=== PATIENT | female | born 1995 | race Caucasian/White ===

== ENCOUNTER 2016-12-07 00:05 | Inpatient (IN) | payer OTHER ==
[~2016-12-07] VITALS: Ht 167.6 cm; Wt 49.9 kg
[~2016-12-07 00:05] MED LIST: BUPR1FIL SL
--- NOTE | 2016-12-07 00:06 | NUR ---
PREADMISSION NOTE : Met 21 year old, thinly-built, caucasion female in [facility] Int[facility] office for V/S and pre-admit assess. Patient accompanied by father and brother. Patient denies any food or drug allergies and she states that she has never had any seizures. Patient denies any pre-existing medical or psychiatric conditions, though she states that she does have "anxiety alot" and is a "hypochondriac". Vital signs are: 98.2-90-18 122/71, O2 Sat 100%. Patient did not bring any medications with her from home. Patient states that this admission will be her very first one for drug detox. Explanation given to patient regarding, [facility] floor admission process and floor protocol, including Q4 hr V/S. Patient then nodded her head and said, " okay".
--- NOTE | 2016-12-07 01:02 | NUR ---
0102 ADMISSION NOTE: Patient admitted to [facility] ambulatory to room # 318, after being given tour of floor by DETENTION WORKER. Gait is steady. Patient's color is pink and her skin is warm, dry and intact, though her overall appearance is somewhat disheveled. Patient noted to have some redness ans slight swelling on forearms, and she states that they have been "feeling a little sore for the past few days". Patient states, " I missed some shots on them". Patient is oriented to person, place, day, date and her personal situation. Easily reoriented to time. Patient states that she is coming from [facility] and this is her first detox admission anywhere. Patient is admitted for 1) Heroin use, daily 1/2 to1 gram IV (formerly smoked). Last heroin use was on 12/06/16, 1/3 of 1 gram IV. Patient has been using heroin at this rate for past 2 months, though she has been using heroin since age 14. 2) Methamphetamine use, daily 1/10 of 1 gram IV. Last Meth use was on 12/01/16, 1/10 of 1 gram IV. She has been using Meth at this rate for the past 2 months, though she has been using Meth since age 18. Patient has no PCP at this time. Patient's lung sounds are clear bilaterally per auscultation. Patient is 5 feet and 6 inches and she weighs 110 lbs. Patient moves all her extremities fully WNL, though body movements are a bit slow and measured. Vital signs are: 98.2-83-18 105/68, O2 Sat 99%, COWS 8. Patient is cooperative and verbally appropriate, though she is anxious and states that she just does not want to "feel sick" while she is here at [facility]. Patient took ice cream snack and drank fluids with no gastric issue. Patient denies any pain at this time. Patient oriented to her room and immediate surroundings. Please see preadmission note for further patient information. Bed is locked and in lowest position, bed rails are up X 2 and call light within patient's easy reach.
[2016-12-07] MEDS ORDERED: MAGNESIUM HYDROXIDE 30 ML LIQUID UDC PO PRN (02:30)
[2016-12-07] MEDS ORDERED: ONDANSETRON 4 MG/2 ML VIAL IM PRN (02:30)
[2016-12-07] MEDS ORDERED: LOPERAMIDE HCL 2 MG CAPSULE PO PRN ×2 (02:30)
[2016-12-07] MEDS ORDERED: diphenhydrAMINE 50 MG CAPSULE PO PRN (02:30)
[2016-12-07] MEDS ORDERED: MIRALAX 17 GM POWD.PACK PO PRN (02:30)
[2016-12-07] MEDS ORDERED: ACETAMINOPHEN 325 MG TABLET PO PRN (02:30)
[2016-12-07] MEDS ORDERED: DICYCLOMINE HCL 20 MG TABLET PO PRN (02:30)
[2016-12-07] MEDS ORDERED: MAG HYDROX/AL HYDROX/SIMETH 30 ML LIQUID UDC PO PRN (02:30)
[2016-12-07] MEDS ORDERED: ONDANSETRON ODT 4 MG TAB.RAPDIS SL PRN (02:30)
[2016-12-07 02:34] LABS: *URINE HCG, QUAL NEGATIVE (NEGATIVE)
[2016-12-07 02:42] LABS: *AMPHETAMINE, URINE POSITIVE (NEGATIVE); *BARBITURATE, URINE NEGATIVE (NEGATIVE); *CANNABINOID, URINE NEGATIVE (NEGATIVE); *COCCAINE, URINE NEGATIVE (NEGATIVE); *OPIATE, URINE POSITIVE (NEGATIVE); *PHENCYCLIDINE SCREEN,URINE NEGATIVE (NEGATIVE)
[2016-12-07 04:00] VITALS: BP 101/66
[2016-12-07] MEDS: METHOCARBAMOL 750 MG TABLET PO PRN ×2 (04:02→20:41)
[2016-12-07] MEDS: HYDROXYZINE PAMOATE 25 MG CAPSULE PO PRN ×2 (04:02→20:41)
[2016-12-07] MEDS: CLONIDINE HCL 0.1 MG TABLET PO PRN ×2 (04:02→21:32)
--- NOTE | 2016-12-07 04:02 | NUR ---
PRN MEDICATIONS: Prn Robaxin 750 mg p.o. given, Prn Catapres 0.1 mg p.o and Prn Vistaril 50 mg p.o. given per c/o body aches and pains, [id number], and anxiety respectively.
[2016-12-07] MEDS ORDERED: HYDROXYZINE PAMOATE 25 MG CAPSULE ONE (04:09)
[2016-12-07] MEDS ORDERED: METHOCARBAMOL 750 MG TABLET ONE (04:10)
[2016-12-07] MEDS: BUPRENORPHINE HCL 2 MG TAB.SUBL SL PRN ×2 (05:00→09:52)
--- NOTE | 2016-12-07 05:00 | NUR ---
PRN SUBUTEX 4 mg SL given for CIWA 12, with c/o chills, body aches and pains, and patient starting to cry now.
--- NOTE | 2016-12-07 05:00 | NUR ---
Prn Subutex 4 mg SL given for c/o shakes, body aches and pains and "really feeling bad". Patient beginning to cry. CIWA 12.
[2016-12-07] MEDS ORDERED: BUPRENORPHINE HCL 2 MG TAB.SUBL SL ONE (05:10)
--- NOTE | 2016-12-07 06:00 | NUR ---
REASSESSMENT PRN MEDICATION: Patient is sleeping comfortably with eyes closed and respirations even, unlabored at 12. Patient NOT awakened for CIWA assessment.
--- NOTE | 2016-12-07 06:30 | NUR ---
0630 Patient slept a total of 4 hours and she had 500 mg p.o. total intake. Voids 1, stools none.
[2016-12-07 08:00] VITALS: BP 103/64
--- NOTE | 2016-12-07 08:00 | NUR ---
START OF SHIFT NOTE Received report from night nurse, 21 year old female admitted for Heroin/Meth dependence. Full code, NKA, Regular diet. Pt reported PMH of kidney infection, denies any history of seizures. Pt reported first time in treatment. Pt received PRN Subutex, Vistaril, Benadryl, Robaxin,Clonidine, slept for 4 hours. Upon assessment, Pt is alert awake oriented x4. Breathing normal no SOB noted. Respirations even unlabored, denies SOB/chest pain, denies n/v/d, bowel sounds active x4, abdomen soft. Safety measures in place, call light within reach, side rails up x2, bed locked and in low position. Will continue to monitor.
[2016-12-07] MEDS: MULTIVITAMINS,THERAPEUTIC TABLET PO SCH (09:26)
--- NOTE | 2016-12-07 09:52 | NUR ---
PRN SUBUTEX Pt c/o of body aches, chills, runny nose, nausea. COWS score noted 13. PRN Subutex 4mg SL as ordered for COWS score. Will cont to monitor and reassess.
[2016-12-07 10:08] LABS: BASOPHILS # (AUTO) 0.1 K/uL (0.0-8.0); BASOPHILS % (AUTO) 0.8 % (0.0-2.0); EOSINOPHILS # (AUTO) 0.1 K/uL (0.0-0.7); EOSINOPHILS % (AUTO) 1.5 % (0.0-7.0); HEMATOCRIT 37.3 % (37-47); HEMOGLOBIN 12.4 G/DL (12.0-16.0); LYMPHOCYTES # (AUTO) 1.8 K/UL (0.8-4.8); LYMPHOCYTES % (AUTO) 29.3 % (20.5-51.5); MEAN CORPUSCULAR HEMOGLOBIN 26.4 UUG (27.0-31.0); MEAN CORPUSCULAR HGB CONC 33 g/dL (32.0-37.0); MEAN CORPUSCULAR VOLUME 79.1 FL (81.0-99.0); MONOCYTES # (AUTO) 0.6 K/UL (0.1-1.30); MONOCYTES % (AUTO) 10.2 % (0.0-11.0); NEUTROPHILS # (AUTO) 3.7 K/UL (1.8-8.9); NEUTROPHILS % (AUTO) 58.2 % (38.5-71.5); PLATELET COUNT (AUTO) 272 K/UL (150-450); RED BLOOD CELL COUNT(AUTO) 4.72 MIL/UL (4.2-5.4); WHITE BLOOD COUNT (AUTO) 6.3 K/UL (4.0-11.2)
[2016-12-07 10:16] LABS: ETHANOL < 3 MG/DL (0-0)
[2016-12-07 10:19] LABS: ALANINE AMINOTRANSFERASE 16 U/L (14-59); ALKALINE PHOSPHATASE 61 U/L (50-136); AMYLASE 47 U/L (25-115); ASPARTATE AMINOTRANSFERASE 17 U/L (15-37); BILIRUBIN,TOTAL 0.3 mg/dL (0.2-1.0); CARBON DIOXIDE 27 mmol/L (21-32); CHLORIDE 107 mmol/L (98-107); CREATININE 0.7 mg/dL (0.6-1.3); GLUCOSE 113 mg/dL (74-106); LIPASE 202 U/L (73-393); POTASSIUM 4.5 mmol/L (3.5-5.1); TOTAL PROTEIN, SERUM 6.5 g/dL (6.4-8.2); UREA NITROGEN, BLOOD 9 mg/dL (7-18)
--- NOTE | 2016-12-07 10:20 | NUR ---
SUBUTEX REASSESSMENT Upon reassessment pt reported medication effective, feeling a lot better. COWS score noted-8.
[2016-12-07 10:27] LABS: THYROID STIMULATING HORMONE 0.633 mIU/mL (0.358-3.740)
[2016-12-07 12:00] VITALS: BP 108/66
[2016-12-07] MEDS: BUPRENORPHINE HCL 2 MG TAB.SUBL SL SCH ×2 (14:07→20:41)
[2016-12-07 16:00] VITALS: BP 106/73
--- NOTE | 2016-12-07 19:05 | NUR ---
END OF SHIFT NOTE Pt started on Subutex taper tolerated well. Pt presented with anxiousness, agitated, chills, body aches, pain during shift. Pt given PRN Subutex 4 mg as ordered noted to be effective. Last COWS score noted 6. Pt rested most of shift and isolated self from peers. She did not attend groups or activities. Encouraged pt to attend groups and activities to learn new coping skills. Vital signs remained stable. Pt remained compliant with care and medications. During shift pt was seen by MD Perkins, and Psychiatrist. Safety measures in place, Call light within reach. Pt endorsed to night nurse in stable condition.
--- NOTE | 2016-12-07 19:55 | NUR ---
START OF SHIFT Received report from day shift nurse. Pt is lying in bed resting. She is a 21 yo female admitted to [facility] today for heroin and methamphetamine dependence. Pt is A&O x4 and ambulatory. NKA, full code status, and on a regular diet. She has a PMH of kidney infections. On admission she reported using heroin 0.5-1 gram per day and methamphetamine 1/10 of a gram per day. She started a 5 day Subutex taper today. She presents with moist skin, chills, body aches, and restless legs. Taper due tonight. Fall precautions in place. Bed is down with call light in reach.
[2016-12-07 20:00] VITALS: BP 112/71
[2016-12-07] MEDS: GABAPENTIN 300 MG CAPSULE PO SCH (20:41)
--- NOTE | 2016-12-07 20:42 | NUR ---
PRN Vistaril and Robaxin Pt c/o feeling "really anxious" with generalized body aches and restlessness. PRN Vistaril and Robaxin administered.
[2016-12-07 21:30] VITALS: BP 126/80
--- NOTE | 2016-12-07 21:30 | NUR ---
PRN Vistaril and Robaxin reassessment PRN Robaxin effective. Pt reports body aches are reduced. PRN Vistaril not effective. Pt reports that she does not feel any more relaxed and continues to have anxiety.
[2016-12-07] MEDS: IBUPROFEN 400 MG TABLET PO PRN (21:32)
--- NOTE | 2016-12-07 21:33 | NUR ---
PRN Clonidine, Ibuprofen, and Zofran Pt reports anxiety, tooth pain, and nausea. B/P 126/80 and HR 114. COWS score 12. PRN Clonidine, Ibuprofen, and Zofran administered.
--- NOTE | 2016-12-07 22:33 | NUR ---
PRN Clonidine, Ibuprofen, and Zofran reassessment PRN Clonidine, Ibuprofen, and Zofran effective. Pt is lying in bed resting with eyes closed. Respirations even and unlabored. Safety measures in place.
[2016-12-08] VITALS: BP 93/56
[2016-12-08 04:00] VITALS: BP 86/49
--- NOTE | 2016-12-08 04:00 | NUR ---
0400 COWS deferred COWS ordered Q4HWA. Pt is lying in bed resting with eyes closed. Vital signs obtained.
--- NOTE | 2016-12-08 07:15 | NUR ---
END OF SHIFT Report provided to day shift nurse. Pt is lying in bed resting. She is a 21 yo female admitted to [facility] today for heroin and methamphetamine dependence. Pt is A&O x4. NKA, full code status, and on a regular diet. She has a PMH of kidney infections. On admission she reported using heroin 0.5-1 gram per day and methamphetamine 1/10 of a gram per day. 5 day Subutex taper started 12/07. PRN PRN Vistaril, Robaxin, Clonidine, Motrin, and Zofran administered. Last COWS was 4. She drank 900mL and slept for 8 hours. Fall precautions in place. Bed is down with call light in reach.
--- NOTE | 2016-12-08 07:53 | NUR ---
START OF SHIFT NOTE Received report from night nurse, 21 year old female admitted for Heroin/Meth dependence. Full code, NKA, Regular diet. Pt reported PMH of kidney infection, denies any history of seizures. Pt reported first time in treatment. Pt received PRN Zofran, Motrin, Vistaril, Robaxin,Clonidine, slept for 8 hours. Last COWS-4. Upon assessment, Pt is alert awake oriented x4. Breathing normal no SOB noted. Respirations even unlabored, denies SOB/chest pain, denies n/v/d, bowel sounds active x4, abdomen soft. Safety measures in place, call light within reach, side rails up x2, bed locked and in low position. Will continue to monitor.
[2016-12-08 08:00] VITALS: BP 104/62
[2016-12-08] MEDS ORDERED: BUPRENORPHINE HCL 2 MG TAB.SUBL SL SCH ×2 (09:00→15:00)
[2016-12-08] MEDS ORDERED: TUBERCULIN,PURIF.PROT.DERIV. 5 TU/0.1 ML TEST ID ONE (09:00)
[2016-12-08] MEDS: MULTIVITAMINS,THERAPEUTIC TABLET PO SCH (09:15)
[2016-12-08] MEDS: GABAPENTIN 300 MG CAPSULE PO SCH ×3 (09:15→20:51)
[2016-12-08 12:00] VITALS: BP 95/55
[2016-12-08] MEDS: HYDROXYZINE PAMOATE 25 MG CAPSULE PO SCH ×2 (14:07→20:50)
[2016-12-08] MEDS: BACLOFEN 20 MG TABLET PO SCH ×2 (14:07→16:10)
[2016-12-08 14:08] LABS: HEPATITIS B SURFACE AG Negative (Negative)
[2016-12-08] MEDS: CLONIDINE HCL 0.1 MG TABLET PO SCH ×2 (14:08→20:50)
[2016-12-08] MEDS: BUPRENORPHINE HCL 2 MG TAB.SUBL SL SCH ×2 (14:12→20:51)
[2016-12-08 16:00] VITALS: BP 109/79
--- NOTE | 2016-12-08 19:09 | NUR ---
END OF SHIFT NOTE Pt cont on Subutex taper tolerated well. Pt presented with anxiousness, agitated, chills, body aches, pain during shift. Last COWS score noted 6. Pt attended some groups and activities. Encouraged pt to attend groups and activities to learn new coping skills. pt did not receive any PRN during shift. Vital signs remained stable. Pt remained compliant with care and medications. During shift pt was seen by MD Perkins, and Psychiatrist. Safety measures in place, Call light within reach. Pt endorsed to night nurse in stable condition.
--- NOTE | 2016-12-08 19:09 | NUR ---
START OF SHIFT NOTE Patient endorsed by day shift nurse. Report received. Patient is a 21 year old female admitted to [facility] on 12/07/2016 for Opioid and Methamphetamine dependence, placed on 5 day Subutex taper since 12/08/2016, which tolerated well without ASE. Patient remains compliant with treatment, medications, and diet regime. Patient reports NKA. Patient is on Full Code, is on Regular Diet, is on Fall and Seizures Precautions. Patient denies History of Seizures. Past Medical History: "Kidney Infections". Patient reports substance use: Heroin smoke and IV: "0.5-1 gram every day since 2010. Last used 0.3 of 1 gram smoke and IV 12/06/2016". Methamphetamine IV: "1/10 of 1 gram since 2013. Last used 1/10 of 1 gram on 12/01/16". Patient reports smoking: "1 pack daily". Patient reports that now she is "first time has detox treatment". Upon endorsement, patient is in the room. Patient is alert and oriented x4. VS WNL. Patient 's stable at this time. COWS 7. Patient presented with anxiety, agitation, nervousness, nose running, mild body aches, tremors that can be felt, and sweats. Respirations unlabored and even. Lungs Sounds are clear bilaterally. Bowel Sounds active in all x4 quadrants. Last Bowel Movement was "12/08/16 at 1600". Skin is intact, warm and dry to touch. Encouraged fluids as tolerated. All needs met. Safety measures on place. Call light within reach, bed in lowest position and locked, padded rails up bilaterally rails up bilaterally. Will continue to monitor closely.
[2016-12-08 20:00] VITALS: BP 106/62
[2016-12-09] VITALS: BP 94/50
[2016-12-09] MEDS: HYDROXYZINE PAMOATE 25 MG CAPSULE PO SCH ×4 (02:30→20:50)
[2016-12-09 04:00] VITALS: BP 84/53
--- NOTE | 2016-12-09 07:20 | NUR ---
END OF SHIFT NOTE Patient endorsed to dayshift nurse in stable condition. Report given. Patient is a 21 year old female admitted to [facility] on 12/07/2016 for Opioid and Methamphetamine dependence, continue 5 day Subutex taper since 12/08/2016, which tolerated well without ASE. Patient remains compliant with treatment, medications, and diet regime. Patient reports NKA. Patient is on Full Code, is on Regular Diet, is on Fall and Seizures Precautions. Patient denies History of Seizures. Past Medical History: "Kidney Infections". Patient reports substance use: Heroin smoke and IV: "0.5-1 gram every day since 2010. Last used 0.3 of 1 gram smoke and IV 12/06/2016". Methamphetamine IV: "1/10 of 1 gram since 2013. Last used 1/10 of 1 gram on 12/01/16". Patient reports smoking: "1 pack daily". Patient reports that now she is "first time has detox treatment". Upon endorsement, patient is in the room. Patient is alert and oriented x4. VS WNL. Patient 's stable at this time. Last COWS decreased from 7 to 5 at 0400. Patient presented with anxiety, agitation, nervousness, nose running, mild body aches, tremors that can be felt, and sweats. Respirations unlabored and even. Patient denies SOB and chest pain. Skin is intact, warm and dry to touch. Encouraged fluids as tolerated. Patient denies SI/HI. Patient slept 9 hours 30 minutes, intake 1,500 ml, voided x2 . All needs met. Safety measures on place. Call light within reach, bed in lowest position and locked, padded rails up bilaterally rails up bilaterally.
--- NOTE | 2016-12-09 07:37 | NUR ---
START OF SHIFT NOTE Received report from night nurse, 21 year old female admitted for Heroin/Meth dependence. Full code, NKA, Regular diet. Pt reported PMH of kidney infection, denies any history of seizures. Pt reported first time in treatment. Pt was not given any PRN during night nurse shift, slept for 9 hours. Upon assessment, Pt is alert awake oriented x4. Breathing normal no SOB noted. Respirations even unlabored, denies SOB/chest pain, denies n/v/d, bowel sounds active x4, abdomen soft. Pt educated with plan of care and medication regimen with good verbal understanding. Safety measures in place, call light within reach, side rails up x2, bed locked and in low position. Will continue to monitor.
[2016-12-09 08:00] VITALS: BP 104/62
[2016-12-09] MEDS ORDERED: BUPRENORPHINE HCL 2 MG TAB.SUBL SL SCH ×2 (09:00)
[2016-12-09] MEDS: GABAPENTIN 300 MG CAPSULE PO SCH ×3 (09:21→20:50)
[2016-12-09] MEDS: MULTIVITAMINS,THERAPEUTIC TABLET PO SCH (09:21)
[2016-12-09] MEDS: CLONIDINE HCL 0.1 MG TABLET PO SCH ×3 (09:21→20:50)
[2016-12-09] MEDS: BACLOFEN 20 MG TABLET PO SCH ×3 (09:21→20:50)
[2016-12-09 12:00] VITALS: BP 107/60
[2016-12-09] MEDS: BUPRENORPHINE HCL 2 MG TAB.SUBL SL SCH ×2 (14:34→20:53)
[2016-12-09 16:00] VITALS: BP 102/62
--- NOTE | 2016-12-09 18:59 | NUR ---
END OF SHIFT NOTE Pt cont on Subutex taper tolerated well. Pt presented with anxiousness, agitated, chills, body aches, pain during shift. Last COWS score noted 5. Pt attended some groups and activities. Encouraged pt to attend groups and activities to learn new coping skills. pt did not receive any PRN during shift. Vital signs remained stable. Pt remained compliant with care and medications. During shift pt was seen by MD Perkins, and Psychiatrist. Safety measures in place, Call light within reach. Pt endorsed to night nurse in stable condition.
[2016-12-09 20:00] VITALS: BP 127/65
--- NOTE | 2016-12-09 20:00 | NUR ---
Start of Shift Pt is a 21 year old female admitted for Opiate dependence, placed on 5 day Subutex taper. Pt reports using Heroin IV 1/2 - 1 gram/daily and Methamphetamine 1/10th of a gram/daily. PMH: Pt reports history of "kidney infections", NKA, regular diet, fall precuations and full code. Upon assessment, pt reports feeling body aches, joint aches, restlessness, hot/flushes and anxiety, respirations even/unlabored, denies SOB/chest pain, denies n/v/d, bowel sounds active x4, abdomen soft. Safety measures in place, call light within reach, side rails up x2, bed locked and in low position. Will continue to monitor.
[2016-12-09] MEDS: IBUPROFEN 400 MG TABLET PO PRN (21:10)
--- NOTE | 2016-12-09 21:10 | NUR ---
PRN Administration Pt reports toothache 12/01, requests relief. Motrin 400mg PRN administered. Safety measures in place. Will continue to monitor.
--- NOTE | 2016-12-09 22:10 | NUR ---
PRN Reassessment Upon reassessment, pt reports toothache 3/10 and subsiding. Needs met, safety measures in place, will continue to monitor.
[2016-12-10] VITALS: BP 89/53
--- NOTE | 2016-12-10 | NUR ---
Vital Signs BP 89/53, pulse 65, resp 16, Spo2 98%, temp 97.9, pain 0/10 COWS deferred d/t pt sleeping to assess while pt is awake as ordered. Safety measures in place, will continue to monitor.
[2016-12-10] MEDS: HYDROXYZINE PAMOATE 25 MG CAPSULE PO SCH ×4 (02:30→20:30)
[2016-12-10 04:00] VITALS: BP 84/59
--- NOTE | 2016-12-10 04:00 | NUR ---
Vital Signs BP 84/59, pulse 60, resp 14, Spo2 99%, temp 98.3, pain 0/10 COWS deferred d/t pt sleeping to assess while pt is awake as ordered. Safety measures in place, will continue to monitor.
--- NOTE | 2016-12-10 07:00 | NUR ---
End of Shift Pt is a 21 year old female admitted for Opiate dependence, placed on 5 day Subutex taper. Pt reports using Heroin IV 1/2 - 1 gram/daily and Methamphetamine 1/10th of a gram/daily. PMH: Pt reports history of "kidney infections", NKA, regular diet, fall precautions and full code. During shift, pt reported feeling body aches, joint aches, restlessness, hot/flushes and anxiety - scheduled taper medications administered, effective in management of s/s of withdrawal as reported per pt, COWS 7. Motrin 400mg PRN administered for toothache, effective as reports per pt. Pt slept for 7 hours, intake of 1020 ml PO, voids x2 and stool x0 . Safety measures in place, call light within reach, side rails up x2, bed locked and in low position. Endorsed to day shift nurse.
--- NOTE | 2016-12-10 07:50 | NUR ---
START OF SHIFT NOTE Received report from night nurse, 21 year old female admitted for Heroin/Meth dependence. Full code, NKA, Regular diet. Pt reported PMH of kidney infection, denies any history of seizures. Pt reported first time in treatment. Pt was given PRN Motrin during night nurse shift, slept for 7 hours. Upon assessment, Pt is alert awake oriented x4. Breathing normal no SOB noted. Respirations even unlabored, denies SOB/chest pain, denies n/v/d, bowel sounds active x4, abdomen soft. Pt educated with plan of care and medication regimen with good verbal understanding. Safety measures in place, call light within reach, side rails up x2, bed locked and in low position. Will continue to monitor.
[2016-12-10 08:00] VITALS: BP 102/64
[2016-12-10] MEDS: CLONIDINE HCL 0.1 MG TABLET PO SCH ×3 (08:37→21:00)
[2016-12-10] MEDS: BUPRENORPHINE HCL 2 MG TAB.SUBL SL SCH ×3 (08:37→16:26)
[2016-12-10] MEDS: GABAPENTIN 300 MG CAPSULE PO SCH ×3 (08:37→21:00)
[2016-12-10] MEDS: MULTIVITAMINS,THERAPEUTIC TABLET PO SCH (08:37)
[2016-12-10] MEDS: BACLOFEN 20 MG TABLET PO SCH ×4 (08:37→21:00)
[2016-12-10] MEDS ORDERED: BUPRENORPHINE HCL 2 MG TAB.SUBL SL SCH (09:00)
[2016-12-10 12:00] VITALS: BP 98/60
[2016-12-10] MEDS: IBUPROFEN 400 MG TABLET PO PRN (14:24)
--- NOTE | 2016-12-10 14:24 | NUR ---
PRN MOTRIN Pt is c/o tooth ache 09/01. PRN Motrin administered as ordered. Will cont to monitor and reassess.
--- NOTE | 2016-12-10 15:24 | NUR ---
REASSESSMENT Pt reported medication effective pain decreased to 2/10. Will cont to monitor.
[2016-12-10 16:00] VITALS: BP 96/58
--- NOTE | 2016-12-10 19:05 | NUR ---
END OF SHIFT NOTE Pt cont on Subutex taper tolerated well. Pt presented with tooth ache 4/10 during shift. Last COWS score noted 3. Pt attended some groups and activities. Encouraged pt to attend groups and activities to learn new coping skills. Pt received PRN Motrin during shift effective pain decreased to 2/10. Vital signs remained stable. Pt remained compliant with care and medications. During shift pt was seen by MD Perkins, and Psychiatrist. Safety measures in place, Call light within reach. Pt endorsed to night nurse in stable condition.
[2016-12-10 20:00] VITALS: BP 88/59
--- NOTE | 2016-12-10 20:00 | NUR ---
Start of Shift Pt is a 21 year old female admitted for Opiate dependence, placed on 5 day Subutex taper. Pt reports using Heroin IV 1/2 - 1 gram/daily and Methamphetamine 1/10th of a gram/daily. PMH: Pt reports history of "kidney infections", NKA, regular diet, fall precautions and full code. Upon assessment, Pt is in bed, sleeping, arousable, skin clammy/sweat, respirations even/unlabored, no s/s of acute distress. Safety measures in place, call light within reach, side rails up x2, bed locked and in low position. Will continue to monitor.
--- NOTE | 2016-12-10 20:30 | NUR ---
Nursing Note Medications held due to noted sedation. Only Bactrim and Culturelle administered. Pt is arousable, respirations even/unlabored, asymptomatic . BP 88/59, pulse 70, resp 18, SpO2 97% room air, temp 97.8, no pain 0/10. MD aware. Safety measures in place. Will continue to monitor.
[2016-12-10] MEDS: LACTOBACILLUS RHAMNOSUS GG 1 EACH CAPSULE PO SCH (21:17)
[2016-12-10] MEDS: SULFAMETH/TRIMETH 800/160 MG TABLET PO SCH (21:17)
[2016-12-11] VITALS: BP 89/58
--- NOTE | 2016-12-11 | NUR ---
Vital Signs BP 89/58, pulse 69, resp 16, Spo2 98%, temp 98.4, pain 0/10 COWS deferred d/t pt sleeping to assess while pt is awake as ordered. Safety measures in place, will continue to monitor.
[2016-12-11] MEDS: HYDROXYZINE PAMOATE 25 MG CAPSULE PO SCH ×2 (02:30→09:09)
[2016-12-11 04:00] VITALS: BP 92/58
--- NOTE | 2016-12-11 04:00 | NUR ---
Vital Signs BP 92/58, pulse 71, resp 16, Spo2 97%, temp 98.4, pain 0/10 COWS deferred d/t pt sleeping to assess while pt is awake as ordered. Safety measures in place, will continue to monitor.
--- NOTE | 2016-12-11 07:00 | NUR ---
End of Shift Pt is a 21 year old female admitted for Opiate dependence, placed on 5 day Subutex taper. Pt reports using Heroin IV 1/2 - 1 gram/daily and Methamphetamine 1/10th of a gram/daily. PMH: Pt reports history of "kidney infections", NKA, regular diet, fall precautions and full code. During shift, Pt was is in bed, sleeping, arousable, skin clammy/sweat, respirations even/unlabored, no s/s of acute distress. 2100 Medications held due to noted sedation and decreased blood pressure. Only Bactrim and Culturelle administered. aware. COWS 3, No PRN medications administered. Pt slept for 9 hours, intake of 250 ml PO, voids x1, stool x. Safety measures in place, call light within reach, side rails up x2, bed locked and in low position. Endorsed to day shift nurse.
--- NOTE | 2016-12-11 07:10 | NUR ---
start of shift note: received pt from rn night nurse,pt is in stable condition no s/s of pain or discomfort. pt is admitted to [facility] for opiate/meth withdrawal/dependence. Pt's last cows 3. will continue to monitor pt for any changes. will monitor pt for any a/r to medications.
[2016-12-11 08:39] LABS: BASOPHILS % (AUTO) 0.6 % (0.0-2.0); EOSINOPHILS # (AUTO) 0.1 K/uL (0.0-0.7); EOSINOPHILS % (AUTO) 2.5 % (0.0-7.0); HEMATOCRIT 36.3 % (37-47); HEMOGLOBIN 11.9 G/DL (12.0-16.0); LYMPHOCYTES # (AUTO) 1.8 K/UL (0.8-4.8); LYMPHOCYTES % (AUTO) 34.5 % (20.5-51.5); MEAN CORPUSCULAR HEMOGLOBIN 25.6 UUG (27.0-31.0); MEAN CORPUSCULAR HGB CONC 33 g/dL (32.0-37.0); MEAN CORPUSCULAR VOLUME 78.4 FL (81.0-99.0); MONOCYTES # (AUTO) 0.5 K/UL (0.1-1.30); MONOCYTES % (AUTO) 10.1 % (0.0-11.0); NEUTROPHILS % (AUTO) 52.3 % (38.5-71.5); PLATELET COUNT (AUTO) 253 K/UL (150-450); RED BLOOD CELL COUNT(AUTO) 4.63 MIL/UL (4.2-5.4); WHITE BLOOD COUNT (AUTO) 5.4 K/UL (4.0-11.2)
[2016-12-11 08:56] LABS: CREATININE 0.7 mg/dL (0.6-1.3); PHOSPHOROUS 4.8 mg/dL (2.5-4.9); POTASSIUM 4.3 mmol/L (3.5-5.1)
[2016-12-11] MEDS: CLONIDINE HCL 0.1 MG TABLET PO SCH (09:00)
[2016-12-11] MEDS ORDERED: BUPRENORPHINE HCL 2 MG TAB.SUBL SL SCH (09:00)
[2016-12-11] MEDS: BACLOFEN 20 MG TABLET PO SCH ×2 (09:09→13:00)
[2016-12-11] MEDS: MULTIVITAMINS,THERAPEUTIC TABLET PO SCH (09:09)
[2016-12-11] MEDS: LACTOBACILLUS RHAMNOSUS GG 1 EACH CAPSULE PO SCH ×2 (09:09→21:41)
[2016-12-11] MEDS: SULFAMETH/TRIMETH 800/160 MG TABLET PO SCH ×2 (09:09→21:41)
[2016-12-11] MEDS: GABAPENTIN 300 MG CAPSULE PO SCH ×3 (09:09→21:41)
[2016-12-11 11:06] VITALS: BP 100/62
[2016-12-11] MEDS: IBUPROFEN 400 MG TABLET PO PRN (12:48)
--- NOTE | 2016-12-11 12:48 | NUR ---
prn administration: pt with complaints of headache, prn motrin administered for pain level 8/10.
[2016-12-11 13:00] VITALS: BP 99/60
--- NOTE | 2016-12-11 13:00 | NUR ---
prn-reassessment: pt stated motrin was effective and pain level is 2/10.
[2016-12-11] MEDS ORDERED: HYDROXYZINE PAMOATE 25 MG CAPSULE PO PRN (13:45)
[2016-12-11] MEDS ORDERED: GABA-534 PO (14:13)
[2016-12-11] MEDS ORDERED: HYDR-3895 PO (14:13)
[2016-12-11] MEDS ORDERED: METH-406 PO (14:13)
[2016-12-11] MEDS ORDERED: SULF1TAB3 PO (14:13)
[2016-12-11] MEDS ORDERED: LACT1CAP57 PO (14:13)
[2016-12-11 17:19] VITALS: BP 118/67
[2016-12-11] MEDS ORDERED: CLONIDINE HCL 0.1 MG TABLET PO PRN ×2 (18:15→18:30)
[2016-12-11 18:20] LABS: *AMPHETAMINE, URINE NEGATIVE (NEGATIVE); *BARBITURATE, URINE NEGATIVE (NEGATIVE); *CANNABINOID, URINE NEGATIVE (NEGATIVE); *COCCAINE, URINE NEGATIVE (NEGATIVE); *OPIATE, URINE POSITIVE (NEGATIVE); *PHENCYCLIDINE SCREEN,URINE NEGATIVE (NEGATIVE)
--- NOTE | 2016-12-11 18:35 | NUR ---
end of shift note: pt is in stable condition no s/s of pain or discomfort. pt is admitted to [facility] for opiate/meth withdrawal/dependence. pt's last cows 2. pt is set to discharge tomorrow and has provided urine drug screen. pt's V/S WNL. B/p has last been noted at 118/68. encouraged pt to increase fluids throughout the shift. pt without a/r to medications. will endorse pt to night worker nurse.
--- NOTE | 2016-12-11 18:56 | NUR ---
PRN CLONIDINE Pt complains of chills and hot cold flashes, PRN Clonidine administered as ordered. Night nurse to reassess.
[2016-12-11 20:00] VITALS: BP 107/65
--- NOTE | 2016-12-11 20:00 | NUR ---
Start of Shift & Reassessment of Clonidine PRN Pt is a 21 year old female admitted for Opiate dependence, placed on 5 day Subutex taper. Pt reports using Heroin IV 1/2 - 1 gram/daily and Methamphetamine 1/10th of a gram/daily. PMH: Pt reports history of "kidney infections", NKA, regular diet, fall precautions and full code. Upon assessment, pt reports mild body aches, reports a relief of hot/cold flashes due to Clonidine 0.1mg PRN administration during the day shift at 1856, respirations even/unlabored, denies SOB/chest, denies n/v/d, bowel sounds active x4, abdomen soft. Pt is scheduled for discharge tomorrow. Safety measures in place, call light within reach, side rails up x2, bed locked and in low position. Will continue to monitor.
--- NOTE | 2016-12-11 21:50 | NUR ---
PRN Administration Pt reports feeling anxious - non pharmacological methods ineffective. Vistaril 50mg PRN administered. Safety measures in place. Will continue to monitor.
--- NOTE | 2016-12-11 22:50 | NUR ---
PRN Reassessment Upon reassessment, pt reports feeling better, reports a decrease in anxiety d/t to scheduled discharge tomorrow. Needs met, safety measures in place. will continue to monitor.
[2016-12-12] VITALS: BP 95/67
--- NOTE | 2016-12-12 | NUR ---
Vital Signs BP 95/67, pulse 68, resp 17, SpO2 98%, temp 98, no pain COWS deferred d/t pt sleeping , to assess while pt is awake as ordered. Safety measures in place. Willcontinue to monitor.
[2016-12-12 04:00] VITALS: BP 96/52
--- NOTE | 2016-12-12 04:00 | NUR ---
Vital Signs BP 96/52, pulse 70, resp 16, SpO2 99%, temp 97.7, no pain COWS deferred d/t pt sleeping , to assess while pt is awake as ordered. Safety measures in place. Willcontinue to monitor.
--- NOTE | 2016-12-12 07:00 | NUR ---
End of Shift Pt is a 21 year old female admitted for Opiate dependence, placed on 5 day Subutex taper, completed. Pt reports using Heroin IV 1/2 - 1 gram/daily and Methamphetamine 1/10th of a gram/daily. PMH: Pt reports history of "kidney infections", NKA, regular diet, fall precautions and full code. During shift, pt reported mild body aches, with anxiety - medications administered along with Vistaril 50mg PRN for anxiety, effective. CIWA 2. Pt is scheduled for discharge today. Pt slept for 6 hours, intake of 1455 ml PO, voids x2 and stool x0. Safety measures in place, call light within reach, side rails up x2, bed locked and in low position. Endorsed to day shift nurse.
--- NOTE | 2016-12-12 07:30 | NUR ---
start of shift note: received pt from cnc machinist 2nd shift nurse, pt is in stable condition [facility]. pt is set to discharge today will assist pt in discharging and will continue to monitor pt for any changes. pts last cows is 2. will assist pt in discharging and will continue to monitor pt for any changes.
[2016-12-12] MEDS: LACTOBACILLUS RHAMNOSUS GG 1 EACH CAPSULE PO SCH (09:27)
[2016-12-12] MEDS: GABAPENTIN 300 MG CAPSULE PO SCH (09:27)
[2016-12-12] MEDS: SULFAMETH/TRIMETH 800/160 MG TABLET PO SCH (09:27)
[2016-12-12] MEDS: MULTIVITAMINS,THERAPEUTIC TABLET PO SCH (09:27)
--- NOTE | 2016-12-12 09:56 | NUR ---
discharge note: pt left the unit in stable condition, no s/s of withdrawal,discomfort or pain. pt teaching administered and pt verbalized understanding. pt's V/S WNL. pt will be transferred to able to change.
== END 2016-12-12 09:56 | disposition other institution (70) | DRG 895 ==
LOC: SRC 00:09
PROVIDERS: ADMIT Internal Medicine; ATTEND Internal Medicine
PROC: HZ2ZZZZ Detoxification Services for Substance Abuse Treatment (ICD-10-PCS; principal; 2016-12-07)
PROC: HZ41ZZZ Group Counseling for Substance Abuse Treatment, Behavioral (ICD-10-PCS; 2016-12-09)
DX: F11.23 Opioid dependence with withdrawal (principal); L03.114 Cellulitis of left upper limb; L03.113 Cellulitis of right upper limb; F15.23 Other stimulant dependence with withdrawal; F17.210 Nicotine dependence, cigarettes, uncomplicated
CPT/HCPCS: 36415; 70030-TC; 80307; 80324; 80361; 83690; 83735; 84100; 84443; 84703; 85025; 86580; 86592; 86705; 86803; 87340; 87806; G0480; Q0162

== ENCOUNTER 2017-04-13 08:17 | Inpatient (IN) | payer OTHER ==
[~2017-04-13] VITALS: Ht 167.6 cm; Wt 48.5 kg
[~2017-04-13 08:17] MED LIST changes: -BUPR1FIL SL; +GABA-534 PO; +HYDR-3895 PO; +LACT1CAP57 PO; +METH-406 PO; +SULF1TAB3 PO
--- NOTE | 2017-04-13 19:25 | NUR ---
PRE-ADMISSION NOTE Patient is 22-year-old female seen at intake, alert and oriented x4 with no SOB noted at this time. Patient reports mild anxiety and restlessness and some chills/flushing. Discussed with patient the admission policies of the unit. Patient is coherent and able to respond to questions appropriately. Patient is ambulatory with steady gait. Vital signs taken, as follows: BP: 138/87, P: 125, R: 16, O2: 97%, T: 98.8, PA: 0. Patient verbalized understanding of instructions and teachings regarding disposal of narcotics and other controlled home medications, unit protocols such as taking of vital signs Q4H and handling and disposal of contraband. Will continue with admission upon patient's arrival on the unit.
[2017-04-13] MEDS ORDERED: MAG HYDROX/AL HYDROX/SIMETH 30 ML LIQUID UDC PO PRN (19:45)
[2017-04-13] MEDS ORDERED: LORAZEPAM 2 MG/1 ML VIAL IM PRN (19:45)
[2017-04-13] MEDS ORDERED: ONDANSETRON 4 MG/2 ML VIAL IM PRN (19:45)
[2017-04-13] MEDS ORDERED: LORAZEPAM 1 MG TABLET PO PRN ×2 (19:45)
[2017-04-13] MEDS ORDERED: ACETAMINOPHEN 325 MG TABLET PO PRN (19:45)
[2017-04-13] MEDS ORDERED: MAGNESIUM HYDROXIDE 30 ML LIQUID UDC PO PRN (19:45)
[2017-04-13] MEDS ORDERED: MIRALAX 17 GM POWD.PACK PO PRN (19:45)
[2017-04-13] MEDS ORDERED: BUPRENORPHINE HCL 2 MG TAB.SUBL SL PRN (19:45)
[2017-04-13] MEDS ORDERED: LOPERAMIDE HCL 2 MG CAPSULE PO PRN ×2 (19:45)
[2017-04-13 20:33] LABS: *URINE HCG, QUAL NEGATIVE (NEGATIVE)
[2017-04-13 20:44] LABS: *AMPHETAMINE, URINE POSITIVE (NEGATIVE); *BARBITURATE, URINE NEGATIVE (NEGATIVE); *CANNABINOID, URINE NEGATIVE (NEGATIVE); *COCCAINE, URINE NEGATIVE (NEGATIVE); *OPIATE, URINE POSITIVE (NEGATIVE); *PHENCYCLIDINE SCREEN,URINE NEGATIVE (NEGATIVE)
--- NOTE | 2017-04-13 20:45 | NUR ---
ADMISSION NOTE Patient is 22-year-old female admitted on 04/13/17 for opiate and benzo dependence, arrived on the unit at 1954. Patient has NKA, denies history of seizures, and adheres to a regular diet. Patient was able to provide UDS. Upon admission CIWA 15, COWS 9, BP: 138/87, P: 125, R: 16, O2: 97%, T: 98.8, PA: 0/10. Weight 107 lbs., height 5'6". Pt reports she does not have a PCP, smokes at least a pack of cigarettes a day, denies being hospitalized within past 30 days. Patient is able to understand and respond to all questions pertaining to her hospitalization. Substance Abuse History is as follows: 1. Xanax 6mg/day, last intake of 4mg on 04/12/17, at this rate for the past 2 months. 2. Heroin 4 grams/day, last intake of 4 grams on 04/13/17, at this rate for past 2 months. 3. Methamphetamine unspecified amounts daily, last intake on 04/13/17, unknown amount, intermittent use, per patient. Patient's longest sobriety was 60 days earlier this year, 2017 (summer). Per patient this is her second treatment. First treatment was at [facility] from December 07 to December 12 2016. Patient reports that her mother struggled with substance abuse. PMH: Anxiety, insomnia, and HSV type 2. Patient did not bring any medications from home, reports she used to take Seroquel to help her sleep but stopped due to unpleasant side effects. Upon assessment, patient is alert and oriented x4, presents with anxiety, reports chills and nausea. Respirations 16/min, even and unlabored. Patient denies SOB, chest pain, no vomiting at this time. Bowel sounds active x 4, abdomen soft and non-tender, last BM was earlier today. PERRLA. Skin intact, no open wounds noted. Pt denies SI/HI. Educational information provided and left at bedside. Pt oriented to room and unit, and encouraged to notify staff with any concerns. Patient on fall and seizure precautions. Safety measures in place. Call light within reach, side rails up x 2, bed locked and in low position. Will continue to monitor.
[2017-04-13] MEDS ORDERED: LORAZEPAM 1 MG TABLET PO SCH (21:00)
[2017-04-13 21:17] LABS: BASOPHILS % (AUTO) 0.5 % (0.0-2.0); EOSINOPHILS # (AUTO) 0.1 K/uL (0.0-0.7); EOSINOPHILS % (AUTO) 0.8 % (0.0-7.0); HEMATOCRIT 39.5 % (37-47); HEMOGLOBIN 12.9 G/DL (12.0-16.0); LYMPHOCYTES # (AUTO) 2.2 K/UL (0.8-4.8); LYMPHOCYTES % (AUTO) 33.6 % (20.5-51.5); MEAN CORPUSCULAR HEMOGLOBIN 24.9 UUG (27.0-31.0); MEAN CORPUSCULAR HGB CONC 33 g/dL (32.0-37.0); MEAN CORPUSCULAR VOLUME 75.9 FL (81.0-99.0); MONOCYTES # (AUTO) 0.8 K/UL (0.1-1.30); MONOCYTES % (AUTO) 12.5 % (0.0-11.0); NEUTROPHILS # (AUTO) 3.5 K/UL (1.8-8.9); NEUTROPHILS % (AUTO) 52.6 % (38.5-71.5); PLATELET COUNT (AUTO) 398 K/UL (150-450); WHITE BLOOD COUNT (AUTO) 6.6 K/UL (4.0-11.2)
[2017-04-13] MEDS: CLONIDINE HCL 0.1 MG TABLET PO PRN (21:17)
[2017-04-13] MEDS: GABAPENTIN 300 MG CAPSULE PO SCH (21:17)
[2017-04-13] MEDS: ONDANSETRON ODT 4 MG TAB.RAPDIS SL PRN (21:17)
--- NOTE | 2017-04-13 21:17 | NUR ---
PRN CLONIDINE AND ZOFRAN Patient reports nausea, agitation, chills/flushing, and anxiety. PRN Zofran and Clonidine given PO. Safety measures are in place, bed is locked in low position, side rails up x2, call light within reach. Will reassess in one hour.
[2017-04-13 21:24] LABS: ALANINE AMINOTRANSFERASE 26 U/L (14-59); ALKALINE PHOSPHATASE 74 U/L (50-136); ASPARTATE AMINOTRANSFERASE 27 U/L (15-37); BILIRUBIN,TOTAL 0.3 mg/dL (0.2-1.0); CARBON DIOXIDE 35 mmol/L (21-32); CHLORIDE 103 mmol/L (98-107); CREATININE 0.6 mg/dL (0.6-1.3); GLUCOSE 78 mg/dL (74-106); TOTAL PROTEIN, SERUM 7.5 g/dL (6.4-8.2); UREA NITROGEN, BLOOD 12 mg/dL (7-18)
[2017-04-13 21:27] LABS: ETHANOL < 3 MG/DL (0-0)
--- NOTE | 2017-04-13 22:17 | NUR ---
PRN CLONIDINE AND ZOFRAN REASSESSMENT Patient reports improvement in nausea, agitation, chills/flushing, and anxiety. PRN Zofran and Clonidine effective. Patient's respirations are 14/min, even and unlabored. Safety measures are in place, bed is locked in low position, side rails up x2, call light within reach. Will continue to monitor.
[2017-04-14] VITALS: BP 95/55
--- NOTE | 2017-04-14 | NUR ---
MIDNIGHT COWS AND CIWA DEFERRED Midnight COWS and CIWA deferred due to patient asleep; to be scored and assessed while patient is awake, per protocol. Patient's respirations are 14/min, even and unlabored. Safety measures are in place, bed is locked in low position, side rails up x2, call light within reach. Will continue to monitor.
[2017-04-14 04:00] VITALS: BP 106/65
--- NOTE | 2017-04-14 04:00 | NUR ---
4AM COWS AND CIWA DEFERRED 4AM COWS and CIWA deferred due to patient asleep; to be scored and assessed while patient is awake, per protocol. Patient's respirations are 14/min, even and unlabored. Safety measures are in place, bed is locked in low position, side rails up x2, call light within reach. Will continue to monitor.
--- NOTE | 2017-04-14 07:30 | NUR ---
END OF SHIFT Patient is 22-year-old female admitted on 04/13/17 for opiate and benzo dependence. Patient has a past medical history of anxiety, insomnia, and HSV type 2. Patient is FULL code, NKA, and on a regular diet. Patient is scheduled to start 5-day Ativan and 5-day Subutex tapers today. Patient slept for 8 hours, total intake of 769 mL, void x4, stool x0. Patient had PRN Zofran for nausea and Clonidine for anxiety, agitation, restlessness, and chills. Both PRNs were effective. Last COWS was 9, last CIWA was 15. Patient is on fall and seizure precautions, safety measures are in place, bed is locked in low position, side rails up x2, call light within reach. Will endorse to day shift.
--- NOTE | 2017-04-14 07:50 | NUR ---
START OF SHIFT Rcvd endorsement from ongoing nurse, client is in room, she is a/o to name, place and situation, she presents with anxious mood, flat affect, flushed face, and moist skin. She reports anxiety, restless legs, and fatigue. She denies any N/V/D. She denies any SI/HI. Encourage client to attend to group therapy for skills to maintain sober. Encourage client to increase PO fluid intake as tolerated to facilitate detox. Client is a 22 y/o female, admitted to [facility] for withdrawal from alprazolam and heroin. She is on a 5 day Ativan taper and 5 day Subutex taper. Last CIWA 9/ 15 @ 2100. PRN Clonidine 0.1mg PO for anxiety, Zofran 4mf SL for nausea, noted effective. Client slept 8 hrs. She denies a hx of withdrawal-induced seizures, Client reports NKA, she is full code, regular diet. Side rails x 2 up/padded for seizure precautions. Call light within reach.
[2017-04-14 08:00] VITALS: BP 111/69
[2017-04-14] MEDS: BUPRENORPHINE HCL 2 MG TAB.SUBL SL SCH ×5 (09:00→20:51)
[2017-04-14] MEDS: GABAPENTIN 300 MG CAPSULE PO SCH ×3 (09:00→20:51)
[2017-04-14] MEDS: LORAZEPAM 1 MG TABLET PO SCH ×5 (09:00→20:51)
[2017-04-14] MEDS: TUBERCULIN,PURIF.PROT.DERIV. 5 TU/0.1 ML TEST ID ONE ×2 (09:49→10:25)
--- NOTE | 2017-04-14 10:25 | NUR ---
TB Test administered to L forearm, client tolerated well.
[2017-04-14] MEDS: ONDANSETRON ODT 4 MG TAB.RAPDIS SL PRN (12:48)
--- NOTE | 2017-04-14 12:48 | NUR ---
PRN Zofran 4mg SL for intermittent nausea, no episodes of emesis. Call light within reach.
[2017-04-14 12:53] VITALS: BP 115/80
--- NOTE | 2017-04-14 13:18 | NUR ---
Reassessment PRN Zofran 4mg SL, client reports relief from nausea and no episodes of emesis. Call light within reach.
[2017-04-14 16:55] VITALS: BP 117/79
--- NOTE | 2017-04-14 17:21 | NUR ---
Client continues tachycardic, she denies any chest pain. Dr. Maradiaga notified, NNO at this time.
--- NOTE | 2017-04-14 19:15 | NUR ---
END OF SHIFT Client is a 22 y/o female, admitted to [facility] for withdrawal from alprazolam and heroin. She is on a 5 day Ativan taper and 5 day Subutex taper. Last CIWA 8/ 10 @ 1600. PRN Zofran 4mf SL for nausea, noted effective. Client is not compliant with group therapy d/t withdrawal symptoms. Client consumes 25-50% of meals, adequate PO fluid intake 2130mL, void x 3, stool x 1. She reports a hx of withdrawal-induced seizures, Client reports NKA, she is full code, regular diet. Side rails x 2 up/padded for seizure precautions. Call light within reach.
[2017-04-14 20:00] VITALS: BP 116/71
--- NOTE | 2017-04-14 20:00 | NUR ---
1999 Patient received lying quietly in -like position of comfort and watching some television. Upon seeing nurse, patient gives eye contact and states, " Hi". Patient is oriented to person, place, day, date and her personal situation. Reoriented to time. Patient states that she did not go to [facility] tonight, however she did attend [facility] this morning. Patient states that presently, ,she does not feel particularly well, which is why she is staying in her bed at this time. Patient's color is pink and her skin is moist and intact. Patient's overall appearance is slightly disheveled. Patient states further that though she has been " feeling withdrawals on and off today", she has still managed to take fluids ad sixto and eat a little from her regular diet meal trays, with no gastric issues. Vital signs are: 98.3-84-16 116/71, O2 Sat 99%, COWS 4, CIWA 4. Patient was admitted on 04/13/17 for: Xanax, Heroin and Meth and she is currently on both a 5-Day Ativan medication taper and a 5-Day Subutex medication taper, which she is apparently tolerating well thus far. Patient voices no requests for anything at this time. Bed is locked and in lowest position, bed rails are up X 2 and call light on patient's bed, within her easy reach.
[2017-04-14] MEDS: METHOCARBAMOL 750 MG TABLET PO PRN (20:52)
--- NOTE | 2017-04-14 20:52 | NUR ---
PRN MEDICATION: Prn Robaxin 750 mg p.o. given per c/o generalized body aches and pains. 8/10 pain scale.
--- NOTE | 2017-04-14 21:52 | NUR ---
REASSESSMENT PRN MEDICATION: Patient is resting comfortably with eyes closed and respirations quiet, even, unlabored at 12.
--- NOTE | 2017-04-15 | NUR ---
Patient sleeping soundly and she requested earlier not to be awakened for V/S to be done at this time. KAILASH DAVIS ordered Q 4hrs while awake. V/S, KAILASH DAVIS deferred at this time.
[2017-04-15] MEDS: CLONIDINE HCL 0.1 MG TABLET PO PRN ×2 (02:07→09:12)
[2017-04-15] MEDS: diphenhydrAMINE 50 MG CAPSULE PO PRN (02:07)
[2017-04-15] MEDS: IBUPROFEN 600 MG TABLET PO PRN (02:07)
--- NOTE | 2017-04-15 02:07 | NUR ---
PRN MEDICATIONS: Prn Catapres 0.1 mg p.o. given per c/o ' shakes, sweats and increasing anxiety'. Prn Benadryl 50 mg p.o. given per request for sleep medication. Prn Motrin 600 mg p.o. given per c/o body aches. COWS 6, CIWA 6.
--- NOTE | 2017-04-15 03:07 | NUR ---
REASSESSMENT PRN MEDICATIONS Patient is sleeping soundly at this time with eyes closed and respirations quiet, even at 12. Patient not awakened now.
--- NOTE | 2017-04-15 04:00 | NUR ---
Patient sleeping and she does not wish to be awakened at this time for V/S, COWS, CIWA to be done. V/S, COWS, CIWA deferred.
--- NOTE | 2017-04-15 06:30 | NUR ---
0630 Patient slept a total of 11 hours and she had 2 voids and no stools. Total intake was 1,150 ml p.o. Prn medications given noted separately per floor protocol. V/SS afebrile, last COWS 6, last CIWA 6 at 0207. Patient is presently sleeping comfortably in stable condition with eyes closed and respirations even at 12.
--- NOTE | 2017-04-15 07:58 | NUR ---
START OF SHIFT Rcvd endorsement from ongoing nurse, client is in room, she is a/o X 4, she presents with depressed mood, flat affect, enlarged pupils, yawning, teary eyes, and clammy skin. She reports anxiety, decreased appetite, restless legs, and fatigue. She denies any N/V/D. She denies any SI/HI. Encourage client to attend to group therapy for skills to maintain sober. Encourage client to increase PO fluid intake as tolerated to facilitate detox. Client is a 22 y/o female, admitted to [facility] for withdrawal from alprazolam and heroin. She is on a 5 day Ativan taper and 5 day Subutex taper (day 2). Last CIWA 6 @ 0200. PRN Robaxin 750mg PO given for generalized body aches and pains 01/01, Clonidine 0.1mg PO for anxiety, and sweats, Benadryl 50mgPO for inability to sleep, she slept 11 hrs. She denies a hx of withdrawal-induced seizures, Client reports NKA, she is full code, regular diet. Side rails x 2 up/padded for seizure precautions. Call light within reach.
[2017-04-15 08:55] VITALS: BP 119/73
[2017-04-15] MEDS: BUPRENORPHINE HCL 2 MG TAB.SUBL SL SCH ×3 (09:11→21:08)
[2017-04-15] MEDS: GABAPENTIN 300 MG CAPSULE PO SCH ×3 (09:11→21:08)
[2017-04-15] MEDS: DICYCLOMINE HCL 20 MG TABLET PO PRN (09:11)
[2017-04-15] MEDS: LORAZEPAM 1 MG TABLET PO SCH ×3 (09:11→21:07)
[2017-04-15] MEDS: METHOCARBAMOL 750 MG TABLET PO PRN (09:11)
--- NOTE | 2017-04-15 09:11 | NUR ---
PRN Robaxin 750mg PO, Bentyl 20mg PO, Clonidine 0.1mg PO administered for generalized body aches 6/10, abdominal spasms, irritability, anxiety, and chills respectively. call light within reach.
--- NOTE | 2017-04-15 09:42 | NUR ---
Therapist prompted client about group times. Client stated she will try to attend groups today.
--- NOTE | 2017-04-15 10:11 | NUR ---
Reassessment PRN Robaxin 750mg PO, Bentyl 20mg PO, Clonidine 0.1mg PO noted effective, client reports relief from generalized body aches 2/10, but tolerable, relief from abdominal spasms, decreased irritability and anxiety.
[2017-04-15 12:05] LABS: HEPATITIS B SURFACE AG Negative (Negative)
[2017-04-15 12:55] VITALS: BP 120/74
[2017-04-15] MEDS: BACLOFEN 10 MG TABLET PO SCH ×2 (15:04→21:08)
[2017-04-15] MEDS: CLONIDINE HCL 0.1 MG TABLET PO SCH (15:05)
[2017-04-15 16:55] VITALS: BP 117/69
--- NOTE | 2017-04-15 19:25 | NUR ---
END OF SHIFT Client is a 22 y/o female, admitted to [facility] for withdrawal from alprazolam and heroin. She is on a 5 day Ativan taper and 5 day Subutex taper (day 2). Last CIWA 8/ 10 @ 1600. Client is in room, a/o x 4. PRN Robaxin 750mg PO, Bentyl 20mg PO, Clonidine 0.1mg PO administered for generalized body aches 6/10, abdominal spasms, irritability, anxiety, and chills respectively. Client was not compliant with droup therapy, encouragement needed. Client consumes 50-75 % of meals, adequate PO fluid intake 2750mL, void x 4, stool x 2. She reports a hx of withdrawal-induced seizures, Client reports NKA, she is full code, regular diet. Side rails x 2 up/padded for seizure precautions. Call light within reach.
--- NOTE | 2017-04-15 19:30 | NUR ---
START OF SHIFT Patient is 22-year-old female admitted on 04/13/17 for opiate (heroin) and benzo (xanax) dependence. Patient has a past medical history of anxiety, insomnia, and HSV type 2. Patient is FULL code, NKA, and on a regular diet. Patient is on 5-day Ativan and 5-day Subutex taper, tolerating well. Upon assessment, patient is resting in bed with eyes closed, respirations even and unlabored. Patient wakes upon hearing her name called. Patient is alert and oriented x4. Patient is on fall and seizure precautions. Safety measures in place, side rails up x2, bed locked in low position, call light within reach. Will continue to monitor.
[2017-04-15 20:00] VITALS: BP 108/58
[2017-04-15] MEDS: CLONIDINE HCL 0.2 MG TABLET PO SCH (21:00)
--- NOTE | 2017-04-15 21:00 | NUR ---
SCHEDULED CLONIDINE HELD Patient's blood pressure was checked at 1999, 108/58 and again at 2100, 101/63. Scheduled Clonidine 0.2 mg was held for low BP. Patient is resting in bed, with eyes closed, respirations even and unlabored. Safety measures in place, side rails up x2, bed locked in low position, call light within reach. Will continue to monitor.
[2017-04-16] VITALS: BP 98/60
--- NOTE | 2017-04-16 | NUR ---
MIDNIGHT COWS & CIWA DEFERRED Midnight COWS and CIWA deferred due to patient sleeping; to be scored and assessed while patient is awake per protocol. Patient's respirations are even and unlabored, 16/min. Safety measures in place, side rails up x2, bed locked in low position, call light within reach. Will continue to monitor.
[2017-04-16 04:00] VITALS: BP 101/61
--- NOTE | 2017-04-16 04:00 | NUR ---
4AM COWS & CIWA DEFERRED 4AM COWS and CIWA deferred due to patient sleeping; to be scored and assessed while patient is awake per protocol. Patient's respirations are even and unlabored, 16/min. Safety measures in place, side rails up x2, bed locked in low position, call light within reach. Will continue to monitor.
--- NOTE | 2017-04-16 07:15 | NUR ---
END OF SHIFT Patient is 22-year-old female admitted on 04/13/17 for opiate (heroin) and benzo (xanax) dependence. Patient has a past medical history of anxiety, insomnia, and HSV type 2. Patient is FULL code, NKA, and on a regular diet. Patient is on 5-day Ativan and 5-day Subutex taper, tolerating well. Patient did not receive any PRNs, and scheduled Clonidine was held due to low blood pressure. Patient slept for 9 hours, total intake was 2,105 mL, void x4, stool x0. Last COWS was 11 and last CIWA was 12. Patient is on fall and seizure precautions. Safety measures in place, side rails up x2, bed locked in low position, call light within reach. Will endorse to day shift.
--- NOTE | 2017-04-16 07:45 | NUR ---
START OF SHIFT Rcvd endorsement from ongoing nurse, client is in room, she is a/o X 4, she presents with anxious mood, guarded, enlarged pupils, and clammy skin. She reports feeling tired, abdominal cramps. and restless legs. She denies any N/V/D. She denies any SI/HI. Encourage client to attend to group therapy for skills to maintain sober. Encourage client to increase PO fluid intake as tolerated to facilitate detox. Client is a 22 y/o female, admitted to [facility] for withdrawal from alprazolam and heroin. She is on a 5 day Ativan taper and 5 day Subutex taper (day 3). Last CIWA 11 @ 0400. Held Clonidine for decreased BP. She slept 9 hrs. She denies a hx of withdrawal-induced seizures, Client reports NKA, she is full code, regular diet. Side rails x 2 up/padded for seizure precautions. Call light within reach.
[2017-04-16 08:55] VITALS: BP 119/76
[2017-04-16] MEDS ORDERED: LORAZEPAM 1 MG TABLET PO SCH ×2 (09:00→21:00)
[2017-04-16] MEDS ORDERED: BUPRENORPHINE HCL 2 MG TAB.SUBL SL SCH ×2 (09:00→15:00)
[2017-04-16] MEDS: LORAZEPAM 1 MG TABLET PO SCH ×3 (09:37→16:25)
[2017-04-16] MEDS: GABAPENTIN 300 MG CAPSULE PO SCH ×3 (09:37→20:25)
[2017-04-16] MEDS: CLONIDINE HCL 0.1 MG TABLET PO SCH ×2 (09:37→15:00)
[2017-04-16] MEDS: BACLOFEN 10 MG TABLET PO SCH ×3 (09:37→20:27)
[2017-04-16 12:24] VITALS: BP 106/53
[2017-04-16] MEDS: BUPRENORPHINE HCL 2 MG TAB.SUBL SL SCH ×3 (13:14→20:25)
--- NOTE | 2017-04-16 14:34 | NUR ---
Client was prompted to attend daily group sessions, and stated that she would consider attending.
[2017-04-16 16:00] VITALS: BP 107/68
--- NOTE | 2017-04-16 19:34 | NUR ---
END OF SHIFT Client is a 22 y/o female, admitted to [facility] for withdrawal from alprazolam and heroin. She is on a 5 day Ativan taper and 5 day Subutex taper (day 2). Last CIWA 9 @ 1600. Client is in room, a/o x 4. Client is compliant with 1/3 of group therapy, encouragement needed. Client consumes 50-75 % of meals, adequate PO fluid intake 1710mL, void x 3. She reports a hx of withdrawal-induced seizures, Client reports NKA, she is full code, regular diet. Side rails x 2 up/padded for seizure precautions. Call light within reach.
[2017-04-16 20:00] VITALS: BP 118/71
--- NOTE | 2017-04-16 20:00 | NUR ---
START OF SHIFT Received 22 year old female patient admitted on 04/13/17 for benzodiazepine, heroin and methamphetamine dependency. Pt is full code with NKA. She reports a PMHx of anxiety, insomnia, and HSV type 2. Pt reports using Xanax 6 mg daily for 2 months. Last dose was 4 mg on 04/12/17. Heroin IV 4 grams daily for 2 months. Last dose was 4 grams on 04/13/17. Methamphetamine of unknown amount. Pt currently receiving 5 day Ativan and 5 day Subutex taper and tolerating well. Per endorsement, pts clonidine was held d/t decreased BP. She did not receive or request PRN medications. Pt is alert and oriented x4, breathing is even and unlabored. Safety measures in place. Will continue to monitor.
[2017-04-16] MEDS: DICYCLOMINE HCL 20 MG TABLET PO PRN (20:27)
[2017-04-16] MEDS: CLONIDINE HCL 0.2 MG TABLET PO SCH (20:27)
--- NOTE | 2017-04-16 20:27 | NUR ---
PRN BENTYL Pt complains of abdominal cramps and spasms 10/01. PRN Bentyl administered as ordered. Breathing is even and unlabored. Safety measures in place. Will monitor effectiveness.
--- NOTE | 2017-04-16 21:27 | NUR ---
PRN REASSESSMENT Pt reports PRN medication was effective. Reports abdominal cramps decreased to 3/10. Safety measures in place. Will monitor.
[2017-04-17] VITALS: BP 100/60
--- NOTE | 2017-04-17 | NUR ---
COWS AND CIWA DEFERRED Pt is lying in bed with eyes closed noted to be asleep. Respirations 16, breathing is even and unlabored. Safety measures in place. Will monitor.
--- NOTE | 2017-04-17 04:00 | NUR ---
VITALS REFUSED/ COWS and CIWA DEFERRED 0400 vitals refused. COWS and CIWA deferred d/t pt lying in bed with eyes closed noted to be asleep. Breathing is even and unlabored. Safety measures in place. Will continue to monitor.
--- NOTE | 2017-04-17 07:03 | NUR ---
END OF SHIFT Pt is a 22 year old female patient admitted on 04/13/17 for benzodiazepine, heroin and methamphetamine dependency. Pt is full code with NKA. She reports a PMHx of anxiety, insomnia, and HSV type 2. She continues on a 5 day Ativan and 5 day Subutex taper and tolerating well. At 2026 she received PRN Bentyl. She slept a total of 9hrs, Intake: 1310mL, Void: x4, BM:1, COWS: 9, CIWA:6. She remains alert and oriented x4, breathing is even and unlabored. Safety measures in place. Will endorse to AM shift.
[2017-04-17 08:00] VITALS: BP 94/54
--- NOTE | 2017-04-17 08:00 | NUR ---
VSS 98.2-64-19 BP 106/64. SATS 98% ON ROOM AIR. PATIENT IS ALERT & ORIENTED AND COOPERATIVE. COWS=1. PATIENT MAKES 70% EYE TO EYE CONTACT AND OBEYS SIMPLE COMMANDS. PATIENT IS QUIETLY AND SLIGHTLY WITHDRAWN BUT DOES COOPERATE WITH ALL PHASES OF NURSING CARE. PATIENT INITIATES ADLS WITHOUT PROMPTING AND IS NONAGGRESSIVE WITH OTHERS. CURRENTLY, PATIENT SHOWS NO SIGNS OF ACUTE WITHDRAWAL. PATIENT DENIES PAINS AND ANY EVIDENCES OF CARDIAC/RESPIRATORY DISTRESS OR SUPPRESSION.
[2017-04-17] MEDS: CLONIDINE HCL 0.1 MG TABLET PO SCH ×3 (08:36→20:32)
[2017-04-17] MEDS ORDERED: LORAZEPAM 1 MG TABLET PO SCH ×2 (09:00→21:00)
[2017-04-17] MEDS ORDERED: BUPRENORPHINE HCL 2 MG TAB.SUBL SL SCH (09:00)
--- NOTE | 2017-04-17 09:00 | NUR ---
PLEASE NOTE THAT NURSE GOT A BP OF 94/54; SO, CLONIDINE O.1 MG PO WAS HELD.
[2017-04-17] MEDS: BUPRENORPHINE HCL 2 MG TAB.SUBL SL SCH ×4 (09:20→20:31)
[2017-04-17] MEDS: LORAZEPAM 1 MG TABLET PO SCH ×3 (09:20→16:59)
[2017-04-17] MEDS: GABAPENTIN 300 MG CAPSULE PO SCH ×3 (09:20→20:31)
[2017-04-17] MEDS: BACLOFEN 10 MG TABLET PO SCH (09:20)
[2017-04-17 12:00] VITALS: BP 100/58
--- NOTE | 2017-04-17 12:00 | NUR ---
VSS 97.8-80-20 BP 100/58. SATS 75% ON ROOM AIR. PATIENT WENT OUT TO SMOKE AND RETURNED SAFELY. PATIENT AMBULATES THROUGHOUT UNIT WITH A STEADY GAIT. CIWA=12, COWS=8. PATIENTS STATES THAT HER CONDITION IS CONSTANTLY "IMPROVING". AT 100% ON LUNCH WITHOUT DIFFICULTY. SHOWS NO SIGNS OF ACUTE CARDIAC/RESPIRATORY DISTRESS OR SUPPRESSION.
[2017-04-17] MEDS: BACLOFEN 20 MG TABLET PO SCH ×2 (14:58→20:30)
[2017-04-17] MEDS: DICYCLOMINE HCL 20 MG TABLET PO SCH ×2 (15:02→20:31)
[2017-04-17 16:00] VITALS: BP 94/49
--- NOTE | 2017-04-17 16:00 | NUR ---
VSS 98.7-88-19 BP 94/49. SATS 99% ON ROOM AIR. ABLE TO COMPLETE BRPS WITHOUT ASSIST. PATIENT IS STILL IN MILD WITHDRAWAL. CIWA=8 COWS-7 PATIENT SHOWS NO SIGNS OF ACUTE CARDIAC/RESPIRATORY DISTRESS OR SUPPRESSION.
--- NOTE | 2017-04-17 18:55 | NUR ---
END OF SHIFT NOTE PLEASE NOTE THAT PATIENT WAS GIVEN ROBAXIN, MOTRIL PRN AT 18:50. PATIENT STATED THAT SHE FELT RESTLESS. NURSE ALSO ADDED IMMODIUM 2 MG PO PRN FOR REPORT OF DIARRHEA. PATIENT WENT OUT TO SMOKE AND AMBULATES WITH A STEADY GAIT. PATIENT SHOWS NO SIGNS OF ACUTE CARDIAC/RESPIRATORY DISTRESS OR SUPPRESSION.
--- NOTE | 2017-04-17 19:15 | NUR ---
START OF SHIFT Received 22 year old female patient admitted on 04/13/17 for benzodiazepine, heroin and methamphetamine dependency. Pt is full code with NKA. She reports a PMHx of anxiety, insomnia, and HSV type 2. Pt reports using Xanax 6 mg daily for 2 months. Last dose was 4 mg on 04/12/17. Heroin IV 4 grams daily for 2 months. Last dose was 4 grams on 04/13/17. Methamphetamine of unknown amount. Pt currently receiving 5 day Ativan and 5 day Subutex taper and tolerating well. Per endorsement, she recevied PRN Robaxin, Motrin and Imodium. Pt is alert and oriented x4, breathing is even and unlabored. Safety measures in place. Will continue to monitor.
[2017-04-17 20:00] VITALS: BP 132/75
[2017-04-18] VITALS: BP 107/60
[2017-04-18] MEDS ORDERED: PRAZOSIN HCL 1 MG CAPSULE PO ONE (00:45)
--- NOTE | 2017-04-18 00:50 | NUR ---
ONE TIME PRAZOSIN Pt complains of inability to stay asleep. Prazosin x1 administered as ordered. Will monitor effectiveness.
[2017-04-18] MEDS ORDERED: PRAZOSIN HCL 1 MG CAPSULE ONE ×2 (01:02→21:25)
--- NOTE | 2017-04-18 01:50 | NUR ---
REASSESSMENT medication is effective. Pt lying in bed with eyes closed noted to be asleep. Breathing is even and unlabored. Safety measures in place. Will continue to monitor.
--- NOTE | 2017-04-18 04:00 | NUR ---
VITALS REFUSED, COWS/CIWA DEFERRED 0400 vitals refused. COWS and CIWA deferred d/t pt lying in bed with eyes closed noted to be asleep. Breathing is even and unlabored. Safety measures in place. Will monitor.
--- NOTE | 2017-04-18 07:08 | NUR ---
END OF SHIFT Pt is a 22 year old female patient admitted on 04/13/17 for benzodiazepine, heroin and methamphetamine dependency. Pt is full code with NKA. She reports a PMHx of anxiety, insomnia, and HSV type 2. She remains on a 5 day Ativan and 5 day Subutex taper and tolerating well. At 0050 she received a one time order of Prazosin. She slept a total of 8hrs, Intake: 1296mL, Void: x3, BM:1, COWS: 5, CIWA:4. Pt remains alert and oriented x4, breathing is even and unlabored. Safety measures in place. Endorsed to AM shift.
--- NOTE | 2017-04-18 07:30 | NUR ---
Start of shift note; Received report from night nurse. Patient is a 22 year old female admitted on 04/13/17 for Benzodiazepine and Opiate dependence. Patient reported history of anxiety, insomnia, HSV. Patient is on full code status, regular diet, NKA. Patient was placed on a 5 day Ativan and 5 day Subutex taper, no adverse reactions noted. Skin is intact. Patient is on fall and seizure precaution. Bed in lowest position, call light within reach. Will continue to monitor patient.
[2017-04-18 08:00] VITALS: BP 115/66
[2017-04-18] MEDS: GABAPENTIN 300 MG CAPSULE PO SCH ×3 (08:29→20:22)
[2017-04-18] MEDS: DICYCLOMINE HCL 20 MG TABLET PO SCH ×3 (08:29→20:23)
[2017-04-18] MEDS: BUPRENORPHINE HCL 2 MG TAB.SUBL SL SCH ×3 (08:29→20:24)
[2017-04-18] MEDS: BACLOFEN 20 MG TABLET PO SCH ×3 (08:29→20:23)
[2017-04-18] MEDS: LORAZEPAM 1 MG TABLET PO SCH ×3 (08:29→20:24)
[2017-04-18] MEDS: CLONIDINE HCL 0.1 MG TABLET PO SCH ×3 (08:31→20:23)
[2017-04-18] MEDS ORDERED: LORAZEPAM 1 MG TABLET PO SCH (09:00)
[2017-04-18] MEDS ORDERED: BUPRENORPHINE HCL 2 MG TAB.SUBL SL SCH (09:00)
[2017-04-18 12:00] VITALS: BP 98/68
[2017-04-18 16:00] VITALS: BP 110/67
--- NOTE | 2017-04-18 18:22 | NUR ---
End of shift note; Patient is AOX4. Patient is a 22 year old female admitted on 04/13/17 for Benzodiazepine and Opiate dependence. Patient reported history of anxiety, insomnia, HSV. Patient is on full code status, regular diet, NKA. Patient was placed on a 5 day Ativan and 5 day Subutex taper, no adverse reactions noted. Skin is intact. Patient is on fall and seizure precaution. Bed in lowest position, call light within reach. Patient's last COWS is 4 and last CIWA is 3. Patient remained complaint with treatment plan. All safety measures secured. Met all needs.
--- NOTE | 2017-04-18 19:15 | NUR ---
START OF SHIFT Received 22 year old female patient admitted on 04/13/17 for benzodiazepine, heroin and methamphetamine dependency. Pt is full code with NKA. She reports a PMHx of anxiety, insomnia, and HSV type 2. Pt reports using Xanax 6 mg daily for 2 months. Last dose was 4 mg on 04/12/17. Heroin IV 4 grams daily for 2 months. Last dose was 4 grams on 04/13/17. Methamphetamine of unknown amount. Pt currently receiving 5 day Ativan and 5 day Subutex taper and tolerating well. Per endorsement, she did not receive or request PRN medications. Pt is alert and oriented x4, breathing is even and unlabored. Safety measures in place. Will continue to monitor.
[2017-04-18 20:00] VITALS: BP 105/71
[2017-04-18] MEDS: IBUPROFEN 600 MG TABLET PO PRN (20:23)
--- NOTE | 2017-04-18 20:23 | NUR ---
PRN MOTRIN Pt complains of headache 12/01. PRN motrin administered as ordered. Safety measures in place. Will monitor effectiveness.
[2017-04-18] MEDS: PRAZOSIN HCL 1 MG CAPSULE PO SCH (21:13)
--- NOTE | 2017-04-18 21:23 | NUR ---
PRN MOTRIN REASSESSMENT PRN medication effective. Pt lying in bed with eyes closed noted to be asleep. No facial grimacing noted. Will continue to monitor
--- NOTE | 2017-04-19 | NUR ---
VITALS REFUSED, COWS/CIWA DEFERRED 0000 vitals refused. COWS and CIWA deferred d/t pt lying in bed with eyes closed noted to be asleep. Breathing is even and unlabored. Safety measures in place. Will monitor.
--- NOTE | 2017-04-19 06:58 | NUR ---
END OF SHIFT Pt is a 22 year old female patient admitted on 04/13/17 for benzodiazepine, heroin and methamphetamine dependency. Pt is full code with NKA. Pt continues on a 5 day Ativan and 5 day Subutex taper and tolerating well. She is scheduled to complete her taper on 04/21/17. At 2032 she received PRN Motrin. She slept a total of 9hrs, Intake: 1350mL, Void: x2, BM:0, COWS:6, CIWA:4. Pt remains alert and oriented x4, breathing is even and unlabored. Safety measures in place. Endorsed to AM shift.
--- NOTE | 2017-04-19 07:39 | NUR ---
Start of shift note; Received report from night nurse. Patient is a 22 year old female admitted on 04/13/17 for Benzodiazepine and Opiate dependence. Patient reported history of anxiety, insomnia, HSV. Patient is on full code status, regular diet, NKA. Patient was placed on a 5 day Ativan and 5 day Subutex taper, no adverse reactions noted. Skin is intact. Patient slept for 9 hours. Patient's last COWS is 6 and last CIWA 4 at 2400. Patient is on fall and seizure precaution. Bed in lowest position, call light within reach. Will continue to monitor patient.
[2017-04-19 08:00] VITALS: BP 120/88
[2017-04-19] MEDS: DICYCLOMINE HCL 20 MG TABLET PO SCH ×3 (08:30→20:40)
[2017-04-19] MEDS: BACLOFEN 20 MG TABLET PO SCH ×3 (08:30→20:40)
[2017-04-19] MEDS: BUPRENORPHINE HCL 2 MG TAB.SUBL SL SCH ×2 (08:30→20:41)
[2017-04-19] MEDS: CLONIDINE HCL 0.1 MG TABLET PO SCH ×2 (08:30→14:12)
[2017-04-19] MEDS: LORAZEPAM 1 MG TABLET PO SCH ×2 (08:30→20:40)
[2017-04-19] MEDS: GABAPENTIN 300 MG CAPSULE PO SCH ×3 (08:31→20:41)
[2017-04-19 12:00] VITALS: BP 108/69
[2017-04-19 16:00] VITALS: BP 104/64
--- NOTE | 2017-04-19 18:20 | NUR ---
End of shift note; Patient is AOX4. Patient is a 22 year old female admitted on 04/13/17 for Benzodiazepine and Opiate dependence. Patient reported history of anxiety, insomnia, HSV. Patient is on full code status, regular diet, NKA. Patient was placed on a 5 day Ativan and 5 day Subutex taper, no adverse reactions noted. Skin is intact. Patient is on fall and seizure precaution. Bed in lowest position, call light within reach. Patient's last COWS is 4 and last CIWA is 3 . Medications were effective in reducing withdrawal symptoms. Patient remained complaint with treatment plan. All safety measures secured. Met all needs.
--- NOTE | 2017-04-19 19:30 | NUR ---
START OF SHIFT Patient is a 22 year old female admitted on 04/13/17 for Benzodiazepine,Meth and Opiate dependency. PMH of anxiety, insomnia, HSV. Patient is on full code status, regular diet, NKA. Patient continues on a 5 day Ativan and 5 day Subutex taper, no adverse reactions noted. Skin is intact. Patient is on fall and seizure precaution. Bed is locked in lowest position, call light within reach. Patient's last COWS is 4 and last CIWA is 3 . Patient is complaint with medication regime and treatment plan. All safety measures secured. Met all needs.Will continue to monitor.
[2017-04-19 20:00] VITALS: BP 100/62
[2017-04-19] MEDS: PRAZOSIN HCL 1 MG CAPSULE PO SCH (20:41)
[2017-04-19] MEDS: diphenhydrAMINE 50 MG CAPSULE PO PRN (22:15)
--- NOTE | 2017-04-19 22:16 | NUR ---
PRN BENADRYL GIVEN ORDERED FOR C/O INSOMNIA.WILL MONITOR.
--- NOTE | 2017-04-19 23:15 | NUR ---
PT RESTING IN BED WITH EYES CLOSED,NO S/S OF DISTRESS NOTED.
[2017-04-20] VITALS: BP 99/60
--- NOTE | 2017-04-20 04:00 | NUR ---
VITALS REFUSED, COWS/CIWA DEFERRED COWS and CIWA deferred d/t pt lying in bed with eyes closed noted to be asleep. Breathing is even and unlabored,no s/s of distress noted, Will monitor.
--- NOTE | 2017-04-20 06:33 | NUR ---
END OF SHIFT Patient is a 22 year old female admitted on 04/13/17 for Benzodiazepine,Meth and Opiate dependency. PMH of anxiety, insomnia, HSV. Patient is on full code status, regular diet, NKA. Patient continues on a 5 day Ativan and 5 day Subutex taper, no adverse reactions noted. Skin is intact. Patient is on fall and seizure precaution. Bed is locked in lowest position, call light within reach. Patient's last COWS is 2 and last CIWA is 2 at midnight . Patient is complaint with medication regime and treatment plan. PRN Benadryl was given with good effect ;PT slept 8 hrs, fluid intake was 1993 mls,voided x 4. All safety measures secured. Will continue to monitor.
--- NOTE | 2017-04-20 07:30 | NUR ---
START OF SHIFT Pt is a 22 yr old female, AA&Ox4. Pt was admitted on 04/13/17 for Benzo/Opiate Dependence and is on 5 day Ativan and Subutex taper as ordered. Medication joe well. Pt received Benadryl PRN for insomnia. Pt slept for 8 hrs. Last COWS score was 2 and CIWA score was 2 at 0000. Pt is currently in bed resting with respirations even and unlabored. No acute distress noted. Skin is intact, warm and dry to touch. Pt is on fall and seizure precautions. Bed kept in low position and locked with side rails up x2. call light is within reach. will continue to monitor.
[2017-04-20 08:00] VITALS: BP 92/50
[2017-04-20 09:00] VITALS: BP 92/53
[2017-04-20] MEDS: CLONIDINE HCL 0.1 MG TABLET PO SCH ×2 (09:00→14:43)
[2017-04-20] MEDS ORDERED: BUPRENORPHINE HCL 2 MG TAB.SUBL SL SCH (09:00)
[2017-04-20] MEDS ORDERED: LORAZEPAM 1 MG TABLET PO SCH (09:00)
[2017-04-20] MEDS: GABAPENTIN 300 MG CAPSULE PO SCH ×3 (09:08→20:54)
[2017-04-20] MEDS: BACLOFEN 20 MG TABLET PO SCH ×3 (09:08→20:53)
[2017-04-20] MEDS: DICYCLOMINE HCL 20 MG TABLET PO SCH ×3 (09:08→20:53)
--- NOTE | 2017-04-20 09:10 | NUR ---
CLONIDINE HELD Clonidine 0.1mg PO as scheduled at 0900 was held due to low BP of 92/53. Pt is asymptomatic. Encouraged increase fluid intake. Will continue to monitor.
[2017-04-20 12:00] VITALS: BP 94/55
[2017-04-20] MEDS ORDERED: IBUP-1955 PO (14:33)
[2017-04-20] MEDS ORDERED: DICY20TA28 PO (14:33)
[2017-04-20] MEDS ORDERED: DIPH50CA37 PO (14:33)
[2017-04-20] MEDS ORDERED: PRAZ1CAP2 PO (14:33)
[2017-04-20] MEDS ORDERED: GABA-534 PO (14:33)
[2017-04-20] MEDS ORDERED: CLON0.1T14 PO (14:33)
[2017-04-20] MEDS ORDERED: BACL20TA PO (14:33)
[2017-04-20 16:00] VITALS: BP 100/58
--- NOTE | 2017-04-20 19:10 | NUR ---
END OF SHIFT Pt is a 22 yr old female, AA&Ox4. Pt was admitted on 04/13/17 for Benzo/Opiate Dependence and has completed a 5 day Ativan and Subutex taper as ordered. Medication joe well. Clonidine 0.1mg as scheduled at 0900 at 1500 was held due to low BP. Pt has been cooperative with medication regimen and plan of care. No PRN's were given. Last COWS score was 1 and CIWA score was 1 at 1600. Pt is to be discharged tomorrow on 04/21/17. Safety precautions observed. Call light is within reach.
[2017-04-20 20:00] VITALS: BP 110/68
--- NOTE | 2017-04-20 20:00 | NUR ---
1999 Patient received awake, alert and just returning to her room # [id number] from [facility] in recreation room. Gait is brisk and steady. Upon seeing nurse, patient smiles and states, " Hi, how are you? Do you know when I can get my meds?" Patient is oriented to person, place, day, date, time and her personal situation. Patient's color is pink and her skin is clean, warm, dry and intact. Patient states that she continues to eat her regular diet meal trays and take various fluids ad sixto with no gastric issues noted. Patient states that she is being discharged home tomorrow and she has no ride. Patient advised to speak to her discharge door to door sales representative regarding transportation tomorrow. Patient states, " I will". Vital signs are: [id number] 110/68, O2 Sat 100%, COWS 1, CIWA 1. Patient denies any pain or other discomforts and she voices no requests for anything at this time. Patient was admitted on 04/13/17 for: Xanax, Heroin and Methamphetamine withdrawal and she has completed both a 5-Day Ativan taper and a 5-Day Subutex taper at this time. Patient is pleasant, cooperative and verbally appropriate when interacting with nurse. Bed is locked and in lowest position, bed rails are up X 1 and call light in place on bed.
[2017-04-20] MEDS ORDERED: PRAZOSIN HCL 1 MG CAPSULE PO SCH (21:00)
[2017-04-20] MEDS: diphenhydrAMINE 50 MG CAPSULE PO PRN (21:08)
--- NOTE | 2017-04-20 21:08 | NUR ---
PRN MEDICATION: Prn Benadryl 50 mg p.o. given per request for sleep medication.
--- NOTE | 2017-04-20 22:08 | NUR ---
REASSESSMENT PRN MEDICATION: Patient is and downstairs on hospital patio for smoke break. Unable to reassess patient at this time.
[2017-04-21 04:00] VITALS: BP 110/68
--- NOTE | 2017-04-21 06:30 | NUR ---
0630 Patient slept a total of 7 hours and she had 2 voids and no stools. Total intake was 1,020 ml p.o. Prn medication given noted separately per floor protocol. V/SS afebrile, last COWS 1, last CIWA 1. Patient is presently sleeping comfortably with eyes closed and respirations even, unlabored at 12.
--- NOTE | 2017-04-21 07:45 | NUR ---
START OF SHIFT Rcvd endorsement from ongoing nurse, client is in room, she is a/o x4, she presents with anxious mood, flat affect. She reports fatigue. She denies any N/V/D. She denies any SI/HI. Client is scheduled for discharge this am. Discuss discharge instructions, client verbalized understanding. Client is a 22 y/o female, admitted to [facility] for withdrawal from alprazolam and heroin. She completed a 5 day Ativan taper and 5 day Subutex taper, tolerated well. Last CIWA 1 @ 0400. PRN Benadryl 50mg PO for inability to sleep, she slept 10 hrs. She denies a hx of withdrawal-induced seizures, Client reports NKA, she is full code, regular diet. Side rails x 2 up/padded for seizure precautions. Call light within reach.
[2017-04-21] MEDS: DICYCLOMINE HCL 20 MG TABLET PO SCH (08:44)
[2017-04-21] MEDS: CLONIDINE HCL 0.1 MG TABLET PO SCH (08:45)
[2017-04-21] MEDS: GABAPENTIN 300 MG CAPSULE PO SCH (08:45)
[2017-04-21] MEDS: BACLOFEN 20 MG TABLET PO SCH (08:45)
[2017-04-21 08:48] VITALS: BP 119/77
--- NOTE | 2017-04-21 10:30 | NUR ---
Discharge note Client was admitted for withdrawal from alprazolam and heroin. Client has a recent CIWA 2/COWS 2. Client VS are WNL. Pt LBM was 04/21/17. Client denies any SI/HI. Client verbalized her understanding of the discharge instructions. Client has no complaints at this time. Client discharge instructions, prescriptions, and all belongings returned to client. All needs addressed at this time. Client ID band removed, client ambulated off of unit, client left facility via [facility] for home
== END 2017-04-21 10:40 | disposition home or self-care (01) | DRG 895 ==
LOC: SRC 19:04
PROVIDERS: ADMIT Internal Medicine; ATTEND Internal Medicine
PROC: HZ2ZZZZ Detoxification Services for Substance Abuse Treatment (ICD-10-PCS; principal; 2017-04-13)
PROC: HZ41ZZZ Group Counseling for Substance Abuse Treatment, Behavioral (ICD-10-PCS; 2017-04-19)
PROC: HZ31ZZZ Individual Counseling for Substance Abuse Treatment, Behavioral (ICD-10-PCS; 2017-04-21)
DX: F11.23 Opioid dependence with withdrawal (principal); E87.3 Alkalosis; F13.230 Sedative, hypnotic or anxiolytic dependence with withdrawal, uncomplicated; E86.0 Dehydration; F41.9 Anxiety disorder, unspecified; Z81.1 Family history of alcohol abuse and dependence; F15.10 Other stimulant abuse, uncomplicated; F17.210 Nicotine dependence, cigarettes, uncomplicated; Z91.89 Other specified personal risk factors, not elsewhere classified; G47.00 Insomnia, unspecified; G47.50 Parasomnia, unspecified
CPT/HCPCS: 36415; 70030-TC; 80307; 80324; 80361; 83735; 84703; 85025; 86580; 86592; 86705; 86803; 87340; 87806; G0480; Q0162; Q0163